=== PATIENT | male | born 2000 | race Caucasian/White ===

== ENCOUNTER 2018-12-22 17:53 | Emergency (ER) | payer OTHER ==
[~2018-12-22] VITALS: Ht 172.7 cm; Wt 71.7 kg
[2018-12-22 17:55] VITALS: Ht 172.7 cm; Wt 71.7 kg
[2018-12-22] MEDS ORDERED: morphine 4 MG/ML VIAL IV STA (18:12)
[2018-12-22] MEDS ORDERED: ONDANSETRON 4 MG INJ IV STA (18:12)
[2018-12-22] MEDS ORDERED: SOD CHLORIDE 0.9% 1,000 ML IV STA (18:12)
[2018-12-22] MEDS ORDERED: PROPOFOL 200 MG INJ IV STA (18:19)
--- NOTE | 2018-12-22 18:34 | ERD ---
ER Documentation Chief Complaint Chief Complaint pt is family with c/o right shoulder "out of place" skateboarding 1 hr ago HPI This is a very pleasant 88-year-old male with no past medical history who is right-handed dominant complaint of right shoulder pain. The patient indicates 1 hour prior to arrival he was on a skateboard. He fell and hit his right shoulder onto cement. He did not hit his head or lose consciousness. He complains of severe right shoulder pain that exacerbated with movement, 10 out of 10 in intensity. He states he is never had any injuries to his upper extremity in the past. He denies a headache. He denies any nausea. He did not take any analgesic medication prior to arrival. He denies any numbness or tingling of his right upper extremities. ROS All systems reviewed and are negative except as per history of present illness. Allergies Allergies: Coded Allergies: No Known Allergy (Unverified , 12/22/18) Physical Exam Vitals Vital Signs Date Temp Pulse Resp B/P (MAP) Pulse Ox O2 O2 Flow FiO2 Time Delivery Rate 12/22/18 98.3 62 18 120/68 100 17:55 (85) Physical Exam Constitutional:Well-developed. Well-nourished. HEENT:Normocephalic. Atraumatic with no nasal septal hematoma no hemotympanum..Pupils were equal round reactive to light. Moist mucous membranes.No tonsillar exudates. Neck: No nuchal rigidity. No lymphadenopathy. No posterior cervical spine tenderness or step-offs. Respiratory: Not using accessory muscles of respiration.Lungs were clear to auscultation bilaterally. No rhonchi. No rales. No wheezing. Cardiovascular: Regular rate regular rhythm.No murmurs. No rubs were appreciated.S1, S2 normal. Distal pulses are palpable 2+ bilaterally. No crepitus no ecchymosis no flail chest Muscle skeletal: Abnormal lie to the right humeral head. Patient holding right upper extremity in abduction. Skin: No petechia, no purpura. No lesions on the palms or the soles of the feet. No maculopapular rash. NEURO: Patient was alert, awake, orientated x3.No facial droop. Gait observed and normal with no ataxia.Speech had regular rate and rhythm. No focal ne urological deficits with sensation intact over the axillary radial ulnar and median nerve distribution of the right upper extremity. Results 24 hrs Current Medications Medications Dose Sig/Felipe Start Time Status Last (Trade) Ordered Route PRN Stop Time Admin Dose Reason Admin Sodium 1,000 ml @ Q1H STAT 12/22/18 Chloride 1,000 mls/hr IV 18:12 12/22/18 19:11 Morphine 4 mg ONCE STAT 12/22/18 DC Sulfate IV 18:12 (morphine) 12/22/18 18:13 Ondansetron 4 mg ONCE STAT 12/22/18 DC HCl (Zofran IV 18:12 Inj) 12/22/18 18:13 Propofol 100 mg ONCE STAT 12/22/18 DC (Diprivan) IV 18:19 12/22/18 18:21 Procedures/MDM Is an 6-year-old male that presented to the emergency department physical exam findings of right shoulder dislocation. The patient immediately had IV access established by nursing staff was given analgesic control which included intravenous morphine and Zofran. 2 view radiographs of the right shoulder was ordered and reviewed by myself. The patient had anterior shoulder dislocation with no underlying fracture. The patient did provide a written consent to procedural sedation. Procedural Sedation: Pre-assessment performed. See preceding complete history and physical for details. Time out performed. See sedation documentation for details. Medication(s): Propofol Complications: No hypoxic or apneic events Recovered without incident. Greater than 15 minutes of face to face time inc luded in sedation and recovery. The patient tolerated the procedure well utilizing traction countertraction technique Radiographic imaging after the reduction reviewed by myself the radiologist indicated that there was an interval reduction. The patient was neurovascularly intact. He was placed in a sling for immobilization and comfort. He was discharged home with analgesic medication. The patient was discharged home in fair condition. They were instructed to return to the emergency department at any time if there was any worsening of their condition. The patient stated they would follow up with their PCP in the next 24-48 hours to initiate a suitable medication regimen under the care of their PCP as well as to allow their PCP to monitor any drug reactions. The patient was discharged home with prescriptions after they gave informed consent to the new medication. They were also fully informed by myself on the adverse effects and adverse drug interactions in order to provide adequate safeguards to prevent possible adverse reactions to medications. Critical Care: Time: 65 minutes Treatments/Evaluations: Close monitoring and treatment of unstable vital signs, cardiorespiratory, and neurologic status, while maintaining tight balance of fluid, respiratory, and cardiac interventions. Time does not include performing any of the above billable procedures. Departure Diagnosis: Primary Impression: Anterior shoulder dislocation Encounter type: initial encounter Laterality: right Qualified Codes: S43.014A - Anterior dislocation of right humerus, initial encounter Condition: MIGDALIA Lubin MD Dec 22, 2018 18:34
[2018-12-22] MEDS ORDERED: KETOROLAC 30 MG INJ IV STA (20:04)
[2018-12-22] MEDS ORDERED: IBUP-1542 PO (20:05)
[2018-12-22 20:22] VITALS: BP 114/68; PULSE 75; RESP 17
== END 2018-12-22 20:22 | disposition home or self-care (01) ==
LOC: E/R 17:53
DX: S43.014A Anterior dislocation of right humerus, initial encounter (principal); R40.2142 Coma scale, eyes open, spontaneous, at arrival to emergency department; R40.2252 Coma scale, best verbal response, oriented, at arrival to emergency department; R40.2362 Coma scale, best motor response, obeys commands, at arrival to emergency department; V00.131A Fall from skateboard, initial encounter; Y92.9 Unspecified place or not applicable
CPT/HCPCS: 23650; 73030; 94770; 96374; 96375; 99285; J1885; J2270; J2405; J7030